=== PATIENT | male | born 1980 ===

== ENCOUNTER 2016-05-24 00:04 | Emergency (ER) | payer MEDICAID, OTHER ==
[~2016-05-24] VITALS: Ht 177.8 cm; Wt 111.8 kg
[~2016-05-24 00:04] MED LIST: CARI350T PO; GABA600T2 PO; HYDR-3481 PO; HYDR-4003 PO; MELO-259 PO; TRAM50TA2 PO
[2016-05-24 00:05] VITALS: BP 132/95; PULSE 119; RESP 20; O2SAT 96
--- NOTE | 2016-05-24 01:06 | ED.REPORT ---
HPI-Back Pain Under 40 Date of Service May 24, 2016 ED Provider: Twin Chaudhari MD 35 year old male with a history of chronic back pain presents to the ER complaining of acute on chronic back pain elicited while helping his cousin move an outboard motor. Shortly after the injury he noticed some radiation of pain up his spine into his neck. Patient denies any numbness/tingling in his lower extremities, and bowel or urinary incontinence. No fall or impact injury. Only a twisting "tweak." Nursing Notes Stated Complaint: BACK PAIN Chief Complaint: Back Pain or Injury Nursing Notes Reviewed: Yes Allergies: Coded Allergies: prednisone (Verified Allergy, Unknown, rash, hives, 11/01/14) Scheduled Carisoprodol (Soma) 350 Mg Tablet 350 MG PO HS Gabapentin (Gabapentin) 600 Mg Tablet 600 MG PO BID Gabapentin (Gabapentin) 100 Mg Capsule 100 MG PO BID Gabapentin (Gabapentin) 300 Mg Capsule 300 MG PO BID Meloxicam (Meloxicam) 7.5 Mg Tablet 7.5 MG PO DAILY Scheduled PRN Hydrocodone-Acetaminophen 5-325 mg (Hydrocodone-Acetaminophen 5-325 mg) 1 Each Tablet 1 TABLET PO QID PRN PRN For Pain Hydrocodone/Acetaminophen (Vicodin Es 7.5-300 mg Tablet) 1 Each Tablet 2 EACH PO Q6 PRN PRN For Pain Ibuprofen (Ibuprofen) 600 Mg Tablet 600 MG PO QID PRN PRN For Pain Methocarbamol (Robaxin-750) 750 Mg Tablet 1-2 TAB PO QID PRN PRN For Spasm Tramadol (Tramadol) 50 Mg Tablet 50 MG PO Q4H PRN PRN For Pain Tramadol (Tramadol) 50 Mg Tablet 100 MG PO Q6H PRN PRN For Pain General Time Seen by MD: 01:06 Chief Complaint Back pain Hx Obtained From: Patient Arrived By: Walk-in Sudden in Onset?: Yes Onset Occurred: 5 - 8 hours ago Symptom Duration: Since onset Caused by: Aggravated old injury, Bending, Lifting Location: : Spinal thoracic area Quality: Painful Radiation: : Neck Severity: Current: Moderate Severity: Maximum: Moderate Associated with: Denies: Incontinence bladder, Incontinence bowel, Numbness both low ext, Tingling left lower ext, Tingling right lower ext Pertinent Negative: Pt denies other symptoms Related History: Reports: Chronic back pain Similar Sx Previous: Yes Past Medical History Past Medical History Chronic back pain Past Surgical History denies Smoking History Unknown if Ever Smoker Social History Other Social History: Local resident Ambulatory Status Independent Review of Systems Musculoskeletal: Reports: Back pain, Lumbar pain, Denies: Extremity pain, Joint pain, Neck pain, Thoracic pain Neurologic: Denies: Numbness Complete sys rev & neg: except as marked. Physical Exam Initial Vital Signs Vital Signs (First) Date Time Temp Pulse Resp B/P Pulse Ox O2 Delivery O2 Flow Rate FiO2 05/24/16 00:05 36.3 119 20 132/95 96 Initial VS: Reviewed Head / Eyes: Atraumatic, Normocephalic Neck: Supple, Non-tender, Full range of motion Extremities: Vascular intact, Neuro intact, No swelling, No tenderness Skin: Warm, Dry, No cyanosis General/Constitutional: Awake, Alert, Well developed, Well nourished Back: Full range of motion, No midline vertebral tend Flank / Spine / Paraspinal: Positive: Thorac paraspinal tend... (Left) Neurologic: Oriented X3, Speech NL, No motor deficits, No sensory deficits Interpretation & Diagnostics Lab Results Interpretation Test 05/24/16 00:49 Hold Purple Top Tube Received (Received) Hold Blue Top Tube Received (Received) Hold [place] Top Tube Received (Received) Re-Eval/Medical Decision Med Decision/Clinical Course 35-year-old chronic pain no longer under a doctor's care and out of his hydrocodone and gabapentin, presents with a reported twisting injury to his back and muscle spasm in his left thoracolumbar muscles. No distal numbness weakness and motor is intact. He is ambulating with a guarded gait though with no apparent weakness. He was referred to residency clinic and to a pain clinic for his ongoing pain medicine is. Begun with Toradol here and ibuprofen 4 times a day, Robaxin 4 times a day, and brief tramadol course. Gabapentin restarted at 100 twice a day with increasing dose to 300 twice a day. Discharged in stable condition. Source of Hx: Old records Re-Evaluation/Progress : Time of Eval: 01:48 Re-Evaluation/Progress Note: Discussed physical examination findings and plan to discharge. Patient is amenable to the plan. Return precautions given. All other questions addressed. Counseled Regarding: Diagnosis, Lab results, Need for follow-up, When/why to return to ED Discharge & Departure Impression: Primary Impression: Strain of thoracic region Additional Impressions: Chronic pain Low back pain Disposition: Home All VS Reviewed: Yes Condition: Stable Patient Instructions: Acute Low Back Pain (ED) Additional Instructions: Take Ibuprofen four times daily. Take 1-2 Robaxin four times daily for muscle spasm You may take tramadol two tablets four times daily if needed additionally for pain Follow up with local physician. You may follow up at [facility] if needed. For ongoing prescriptions for pain medicines, you will need to establish with a pain clinic. We cannot prescribe or replace narcotics for chronic pain. Referrals: [facility] (PCP) [facility] [place] Attestation Portions of this note were transcribed by Robert Jackman. I, Dr. Chaudhari, personally performed the history, physical exam and medical decision-making; I reviewed and confirmed the accuracy of the information in the transcribed note. Signed by: Nicolas Love. 05/24/2016 - 01:47 copies to: [facility] Christopher W MD May 24, 2016 01:06 ROBERT JACKMAN May 24, 2016 01:08
[2016-05-24] MEDS ORDERED: Ketorolac 30 mg/mL 2 mL Inj IM ONE (01:30)
[2016-05-24] MEDS ORDERED: IBUP-1827 PO (01:36)
[2016-05-24] MEDS ORDERED: TRAM50TA2 PO (01:36)
[2016-05-24] MEDS ORDERED: METH-313 PO (01:36)
[2016-05-24] MEDS ORDERED: GABA-500 PO (01:50)
[2016-05-24] MEDS ORDERED: GABA-502 PO (01:50)
[2016-05-24 02:43] VITALS: BP 130/88; PULSE 98; RESP 20; O2SAT 97
== END 2016-05-24 02:45 | disposition home or self-care (01) ==
LOC: SED 00:04
DX: S29.012A Strain of muscle and tendon of back wall of thorax, initial encounter (principal); X50.1XXA Overexertion from prolonged static or awkward postures, initial encounter; Y93.89 Activity, other specified; Y92.89 Other specified places as the place of occurrence of the external cause; Y99.8 Other external cause status; M54.5 Low back pain; G89.29 Other chronic pain; Z88.8 Allergy status to other drugs, medicaments and biological substances
CPT/HCPCS: 96372; 99284; J1885